=== PATIENT | male | born 1980 | race Native Hawaiian/Other Pacific Islander ===

== ENCOUNTER 2017-02-17 03:10 | Emergency (ER) | payer OTHER ==
[2017-02-17 03:10] VITALS: BMI 23.3
[2017-02-17 03:29] VITALS: BP 120/61; PULSE 80; RESP 16; TEMP 98.1; O2SAT 98
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
--- NOTE | 2017-02-17 08:28 | RAD ---
PROCEDURE: Right Knee Radiographs. HISTORY: r/o fx COMPARISON: None. FINDINGS: BONES: Normal. No fracture. JOINTS: Normal. No osteoarthritis. JOINT EFFUSION: None. OTHER FINDINGS: None. IMPRESSION: Normal radiographs of the right knee.
== END 2017-02-17 04:19 | disposition home or self-care (01) ==
LOC: ED 03:10
DX: S80.01XA Contusion of right knee, initial encounter (principal); X58.XXXA Exposure to other specified factors, initial encounter; Y92.89 Other specified places as the place of occurrence of the external cause; Y99.0 Civilian activity done for income or pay